=== PATIENT | female | born 1960 | race Caucasian/White ===

== ENCOUNTER → 2017-11-11 | Outpatient (REF) | payer OTHER ==
[2017-11-11 13:09] LABS: FOLATE 23.9 NG/ML; VITAMIN B12 LEVEL 724 PG/ML
== END ==
LOC: M LAB REF 12:18
DX: D50.9 Iron deficiency anemia, unspecified (principal)

== ENCOUNTER → 2018-05-13 | Outpatient (REF) | payer OTHER ==
[2018-05-13 12:55] LABS: FERRITIN 17 NG/ML (8-252)
== END ==
LOC: M LAB REF 12:09
DX: D50.9 Iron deficiency anemia, unspecified (principal); Z98.84 Bariatric surgery status

== ENCOUNTER → 2018-11-17 | Outpatient (REF) | payer OTHER ==
[2018-11-17 12:42] LABS: FERRITIN 15 NG/ML (8-252)
[2018-11-17 12:47] LABS: FOLATE > 24.0 NG/ML (>5.4)
[2018-11-18 09:45] LABS: VITAMIN B12 LEVEL 729 PG/ML (232-1245)
== END ==
LOC: M LAB REF 11:57
PROVIDERS: ATTEND Internal Medicine
DX: D50.9 Iron deficiency anemia, unspecified (principal); Z98.84 Bariatric surgery status

== ENCOUNTER → 2019-11-19 | Outpatient (REF) | payer OTHER ==
[2019-11-19 13:14] LABS: FERRITIN 11 NG/ML (8-252)
[2019-11-19 13:21] LABS: FOLATE > 24.0 NG/ML; VITAMIN B12 LEVEL 564 PG/ML
== END ==
LOC: M LAB REF 12:31
PROVIDERS: ATTEND Internal Medicine
DX: Z98.84 Bariatric surgery status (principal)

== ENCOUNTER → 2020-03-16 | Outpatient (REF) | payer OTHER | LOC: M LAB REF 10:47 | PROVIDERS: ATTEND Dermatology | DX: C44.310 Basal cell carcinoma of skin of unspecified parts of face (principal) ==

== ENCOUNTER → 2020-11-23 | Outpatient (REF) | payer OTHER ==
[2020-11-23 13:35] LABS: FERRITIN 8 NG/ML (8-252)
[2020-11-23 14:56] LABS: VITAMIN B12 LEVEL 613 PG/ML
[2020-11-23 14:57] LABS: FOLATE > 24.0 NG/ML
== END ==
LOC: M LAB REF 12:45
PROVIDERS: ATTEND Internal Medicine
DX: D50.9 Iron deficiency anemia, unspecified (principal); Z98.84 Bariatric surgery status

== ENCOUNTER → 2021-01-27 | Outpatient (CLI) | payer OTHER ==
[~2021-01-27] MED LIST: D31000TA2 PO; IRON27TA2 PO; LORA-243 PO; MAGN400C PO; VITATAB73 PO
== END ==
LOC: M LABSMTC 09:50
PROVIDERS: ATTEND Anesthesiology
DX: Z01.812 Encounter for preprocedural laboratory examination (principal); Z20.822 Contact with and (suspected) exposure to COVID-19

== ENCOUNTER 2021-02-01 10:24 | Day surgery (SDC) | payer OTHER ==
[~2021-02-01] VITALS: Ht 158.8 cm; Wt 83.5 kg
[~2021-02-01 10:24] MED LIST changes: +NS 1,000 ML IV ONE
[2021-02-01] MEDS ORDERED: LIDOCAINE 2% 100MG/5ML SDV (FOR ANES.) As Ordered ONE (11:22)
[2021-02-01] MEDS ORDERED: propofoL 200 MG/20 ML VIAL As Ordered ONE ×2 (11:23→11:24)
--- NOTE | 2021-02-01 12:43 | ROOR ---
Patient Name: Maria Alejandra Chávez Procedure Date: 02/01/2021 12:20 PM Date of : 1960 Age: 60 Room: [facility] Gender: Female Note Status: Finalized Procedure: Total Colonoscopy to Cecum + ileoscopy Indications: High risk colon cancer surveillance: Personal history of colonic polyps, Last colonoscopy: 2010 Providers: Godfrey Pereira MD Referring MD: Magdalene MARTINEZ MD Requesting Provider: Medicines: Monitored Anesthesia Care Complications: No immediate complications. Procedure: Pre-Anesthesia Assessment: - The heart rate, respiratory rate, oxygen saturations, blood pressure, adequacy of pulmonary ventilation, and response to care were monitored throughout the procedure. The Colonoscope was introduced through the anus and advanced to the terminal ileum, with identification of the appendiceal orifice and IC valve. The colonoscopy was performed without difficulty. The patient tolerated the procedure well. The quality of the bowel preparation was excellent. Findings: The perianal and digital rectal examinations were normal. No other significant abnormalities were identified in a careful examination of the remainder of the colon. The exam was otherwise without abnormality on direct and retroflexion views. The terminal ileum appeared normal. Impression: - The examination was otherwise normal on direct and retroflexion views. - The examined portion of the ileum was normal. - No specimens collected. - The exam was otherwise normal to the cecum. Recommendation: - Patient has a contact number available for emergencies. The signs and symptoms of potential delayed complications were discussed with the patient. Return to normal activities tomorrow. Written discharge instructions were provided to the patient. - High fiber diet. - Discharge patient to home. - Continue present medications. - Repeat colonoscopy in 5 years for surveillance. - Return to referring physician. - The findings and recommendations were discussed with the patient. Procedure Code(s): --- Professional --- G0105, Colorectal cancer screening; colonoscopy on individual at high risk Diagnosis Code(s): --- Professional --- Z86.010, Personal history of colonic polyps CPT copyright 2019 [employer]. All rights reserved. The codes documented in this report are preliminary and upon government services professional review may be revised to meet current compliance requirements. Godfrey Pereira MD Godfrey Pereira MD 02/01/2021 12:42:22 PM Electronically signed by Godfrey Pereira MD Number of Addenda: 0 Note Initiated On: 02/01/2021 12:20 PM Estimated Blood Loss: Estimated blood loss: none.
[2021-02-01 13:10] VITALS: BP 140/85
== END 2021-02-01 13:25 | disposition home or self-care (01) ==
LOC: M OPP 10:24
PROVIDERS: ATTEND Internal Medicine Gastroenterology
DX: Z12.11 Encounter for screening for malignant neoplasm of colon (principal); Z86.010 Personal history of colon polyps; Z83.71 Family history of colonic polyps; Z98.84 Bariatric surgery status; Z91.040 Latex allergy status

== ENCOUNTER → 2021-05-23 | Outpatient (REF) | payer OTHER ==
[~2021-05-23] MED LIST changes: -NS 1,000 ML IV ONE
== END ==
LOC: M LAB REF 11:17
PROVIDERS: ATTEND Internal Medicine
DX: D50.9 Iron deficiency anemia, unspecified (principal)

== ENCOUNTER → 2021-07-25 | Outpatient (CLI) | payer OTHER ==
--- NOTE | 2021-07-25 16:03 | DEXAMM ---
INDICATION: OTHER DISORDER OF BONE DENSITY AND STRUCTURE UNSPEC. COMPARISON: May 12, 2019. TECHNIQUE: Bone density was measured using dual-energy x-ray absorptionmetry (DEXA). FINDINGS: AP SPINE L1-L4 BMD 0.929 g/cm2 Young Adult T-Score -2.1 Age Matched Z-Score -0.8. LT FEMUR, TOTAL BMD 0.918 g/cm2 Young Adult T-Score -0.7 Age Matched Z-Score 0.3. LT NECK BMD 0.860 g/cm2 Young Adult T-Score -1.3 Age Matched Z-Score 0.1. RT FEMUR, TOTAL BMD 0.891 g/cm2 Young Adult T-Score -0.9 Age Matched Z-Score 0.1. RT NECK BMD 0.801 g/cm2 Young Adult T-Score -1.7 Age Matched Z-Score -0.4. IMPRESSION: There is low bone density of the spine. There is low bone density of the left hip. There is low bone density of the right hip. The density of the spine has decreased 12.8% since the initial exam on December 16, 2012. The density of the spine decreased 0.3% since the most recent exam on May 12, 2019. The density of the left hip has decreased 8.3% since the initial exam on December 16, 2012. The density of the left hip has decreased 1.2% since the most recent exam on May 12, 2019. The density of the right hip has decreased 7.8% since the initial exam on December 16, 2012. The density of the right hip has decreased 0.3% since the most recent exam on May 12, 2019. FOLLOW-UP: Recommendation for the next bone density exam: 2 years. <Electronically signed by Demetrius Pepe > 07/25/21 [id number]
== END ==
LOC: M WHC 13:51
PROVIDERS: ATTEND Internal Medicine
DX: M81.0 Age-related osteoporosis without current pathological fracture (principal)

== ENCOUNTER → 2021-11-23 | Outpatient (REF) | payer OTHER | LOC: M LAB REF 12:02 | PROVIDERS: ATTEND Internal Medicine | DX: D50.9 Iron deficiency anemia, unspecified (principal) ==

== ENCOUNTER → 2022-05-20 | Outpatient (CLI) | payer OTHER ==
[~2022-05-20] MED LIST changes: -D31000TA2 PO; +VITA100093 PO
== END ==
LOC: M RAD 08:54
PROVIDERS: ATTEND Physician Assistant
DX: S93.402A Sprain of unspecified ligament of left ankle, initial encounter (principal); M19.072 Primary osteoarthritis, left ankle and foot

== ENCOUNTER → 2022-08-20 | Outpatient (CLI) | payer OTHER ==
[2022-08-20 18:11] LABS: C REACTIVE PROTEIN QUANTITATIV < 0.30 MG/DL (0.00-0.30); RHEUMATOID FACTOR QUANT < 10.0 IU/ML (<15.0); URIC ACID 4.5 MG/DL (2.6-6.0)
== END ==
LOC: M LAB 16:33
PROVIDERS: ATTEND Physician Assistant
DX: M19.072 Primary osteoarthritis, left ankle and foot (principal)

== ENCOUNTER → 2022-11-30 | Outpatient (REF) | payer OTHER ==
[2022-11-30 12:09] LABS: FERRITIN 6.6 NG/ML (7.3-270.7); FOLATE > 24.00 NG/ML (>5.4)
[2022-11-30 12:10] LABS: VITAMIN B12 LEVEL 604 PG/ML (211-911)
== END ==
LOC: M LAB REF 11:24
PROVIDERS: ATTEND Internal Medicine
DX: D50.9 Iron deficiency anemia, unspecified (principal)

== ENCOUNTER → 2023-02-26 | Outpatient (REF) | payer OTHER | LOC: M SFHCWAGY 13:23 | PROVIDERS: ATTEND Obstetrics & Gynecology | DX: N84.1 Polyp of cervix uteri (principal) ==

== ENCOUNTER → 2023-06-04 | Outpatient (REF) | payer OTHER | LOC: M LAB REF 11:45 | PROVIDERS: ATTEND Internal Medicine | DX: D50.9 Iron deficiency anemia, unspecified (principal) ==

== ENCOUNTER → 2023-12-06 | Outpatient (REF) | payer OTHER ==
[2023-12-06 13:02] LABS: FERRITIN 35.1 NG/ML (7.3-270.7)
[2023-12-06 13:07] LABS: VITAMIN B12 LEVEL 1001 PG/ML (211-911)
[2023-12-06 13:09] LABS: FOLATE > 24.0 NG/ML (>5.4)
== END ==
LOC: M LAB REF 12:15
PROVIDERS: ATTEND Internal Medicine
DX: D50.9 Iron deficiency anemia, unspecified (principal)

== ENCOUNTER → 2024-08-20 | Outpatient (REF) | payer MEDICARE, OTHER ==
[2024-08-25 18:28] LABS: LYME TOTAL ANTIBODY CIA 2.84 Index (<=0.90)
[2024-08-25 20:52] LABS: LYME AB IGG BY CIA <= 0.90 Index (<=0.90); LYME AB IGM BY CIA <= 0.90 Index (<=0.90)
== END ==
LOC: M LAB REF 12:11
PROVIDERS: ATTEND Internal Medicine
DX: M25.571 Pain in right ankle and joints of right foot (principal)

== ENCOUNTER → 2025-05-21 | Outpatient (REF) | payer MEDICARE, OTHER ==
[2025-05-21 12:44] LABS: C REACTIVE PROTEIN QUANTITATIV < 0.50 MG/DL (<1.0)
[2025-05-21 12:56] LABS: VITAMIN B12 LEVEL 980 PG/ML (211-911)
== END ==
LOC: M LAB REF 11:48
PROVIDERS: ATTEND Internal Medicine
DX: M25.571 Pain in right ankle and joints of right foot (principal); D50.9 Iron deficiency anemia, unspecified

== ENCOUNTER → 2025-08-25 | Outpatient (REF) | payer MEDICARE, OTHER | LOC: M LAB REF 14:07 | PROVIDERS: ATTEND Internal Medicine | DX: D50.9 Iron deficiency anemia, unspecified (principal) ==

== ENCOUNTER → 2025-09-21 | Outpatient (CLI) | payer MEDICARE, OTHER | LOC: M PLAIMG 16:15 | PROVIDERS: ATTEND Internal Medicine | DX: M54.50 Low back pain, unspecified (principal); M47.816 Spondylosis without myelopathy or radiculopathy, lumbar region ==